=== PATIENT | male | born 1970 | race African-American/Black ===

== ENCOUNTER 2020-02-17 10:28 | Inpatient (IN) | payer OTHER ==
[~2020-02-17] VITALS: Ht 172.7 cm; Wt 79.0 kg
[2020-02-17 11:19] LABS: ABSOLUTE BASOPHILS 0.1 thou/uL (0.0-0.2); ABSOLUTE EOSINOPHILS 0.1 thou/uL (0.0-0.7); ABSOLUTE LYMPHOCYTES 1.5 thou/uL (0.8-5.3); ABSOLUTE MONOCYTES 0.9 thou/uL (0.0-1.2); ABSOLUTE NEUTROPHILS 6.9 thou/uL (1.6-8.1); BASOPHILS 0.6 %; EOSINOPHILS 0.7 %; HEMATOCRIT 31.1 % (42.0-52.0); HEMOGLOBIN 10.3 gm/dL (14.0-18.0); LYMPHOCYTES 15.8 %; MCV 78.9 fL (80.0-100.0); MONOCYTES 9.4 %; MPV 7.3 fl. (7.2-11.1); NUCLEATED RBCS 0 /100WBC; PLATELET COUNT* 378 thou/uL (150-400); POLYS 73.5 %; RBC 3.94 mil/uL (4.50-6.00); RDW-CV 14.8 % (10.5-14.5); WBC 9.4 thou/uL (4.0-11.0)
[2020-02-17 11:28] LABS: APTT 25.6 Seconds (25.0-31.3); INR 1.1; PROTIME 11.5 Seconds (9.20-11.50)
[2020-02-17 11:33] LABS: CALCIUM 8.1 mg/dL (8.5-10.1); CREATININE 1.4 mg/dL (0.6-1.3); POTASSIUM 4.1 mmol/L (3.5-5.1)
[2020-02-17 11:58] LABS: ALBUMIN 2.4 g/dL (3.4-5.0); CK-MB MASS 0.5 ng/mL (<0.5-3.6); TOTAL BILIRUBIN 0.7 mg/dL (<0.1-1.0); TOTAL PROTEIN 7.3 g/dL (6.4-8.2)
[2020-02-17 16:12] VITALS: BP 132/83
[2020-02-17 17:40] VITALS: BP 129/99
[2020-02-17 20:00] VITALS: BP 134/80
[2020-02-18] VITALS (7 sets, daily range): BP systolic 110–145; BP diastolic 64–85
[2020-02-18 09:23] LABS: CALCIUM 8.1 mg/dL (8.5-10.1); CREATININE 1.4 mg/dL (0.6-1.3); POTASSIUM 4.1 mmol/L (3.5-5.1)
--- NOTE | 2020-02-18 16:24 | 2DMMODE ---
[place] [address] 2 D/M-MODE ECHOCARDIOGRAM Name: EVON VINES Room: [address] IN [facility]#: [id number] Admission: 02/17/20 Attend Phys: Raymond Bautista Discharge: Date of : 74 Date of Service: 02/18/20 1623 Report #: [id number] THIS REPORT FOR: cc: FAM - No family physician/PCP FAM - No family physician/PCP Evangelista Nelson MD [facility] ~ APPROVED REPORT Study performed: 02/18/2020 10:40:30 EXAM: Comprehensive 2D, Doppler, and color-flow Echocardiogram Patient Location: In-Patient Room #: [facility] Status: routine BSA: 1.90 HR: 77 bpm BP: 119/69 mmHg Rhythm: NSR Other Information Study Quality: Good Indications Elevated Troponin Chest Pain 2D Dimensions IVSd: 9.81 (7-11mm) LVOT Diam: 19.67 (18-24mm) LVDd: 41.70 mm PWd: 9.29 (7-11mm) Ascending Ao: 29.60 (22-36mm) LVDs: 27.30 (25-40mm) Aortic Root: 32.18 mm Volumes Left Atrial Volume (Systole) LA ESV Index: 27.00 mL/m2 Aortic Valve AoV Peak Vin.: 1.46 m/s AO Peak Gr.: 8.53 mmHg LVOT Max P.66 mmHg AO Mean Gr.: 4.91 mmHg LVOT Mean P.56 mmHg LVOT Max V: 1.38 m/s AO V2 VTI: 27.32 cm LVOT Mean V: 0.86 m/s RAMONA (VTI): 2.84 cm2 LVOT V1 VTI: 25.54 [place] [address] 2 D/M-MODE ECHOCARDIOGRAM Name: EVON VINES Room: [address] IN [facility]#: [id number] Admission: 02/17/20 Attend Phys: Raymond Bautista Discharge: Date of : 74 Date of Service: 02/18/20 1623 Report #: [id number] Mitral Valve E/A Ratio: 1.74 MV Decel. Time: 180.26 ms MV E Max Vin.: 0.79 m/s MV PHT: 52.28 ms MVA (PHT): 4.21 cm2 TDI E/Lateral E': 6.08 E/Medial E': 7.18 Medial E' Vin.: 0.11 m/s Lateral E' Vin.: 0.13 m/s Pulmonary Valve PV Peak Vin.: 0.85 m/s PV Peak Gr.: 2.87 mmHg Tricuspid Valve RAP Estimate: 5.00 mmHg TR Peak Gr.: 26.60 mmHg RVSP: 31.00 mmHg PA Pressure: 31.00 mmHg Left Ventricle The left ventricle is normal size. There is normal LV segmental wall motion. There is normal left ventricular wall thickness. Left ventricular systolic function is normal. The left ventricular ejection fraction is within the normal range. LVEF is 55-60%. The left ventricular diastolic function is normal. Right Ventricle The right ventricle is normal size. The right ventricular systolic function is normal. Atria The left atrium size is normal. The right atrium size is normal. Aortic Valve The aortic valve is normal in structure. No aortic regurgitation is present. There is no aortic valvular stenosis. Mitral Valve The mitral valve is normal in structure; there is a flagellate mass appended to the to the anterior mitral lealet which is freely mobile. Mild mitral regurgitation. No evidence of mitral valve [place] [address] 2 D/M-MODE ECHOCARDIOGRAM Name: EVON VINES Room: [address] IN [facility]#: [id number] Admission: 02/17/20 Attend Phys: Raymond Bautista Discharge: Date of : 74 Date of Service: 02/18/20 1623 Report #: [id number] Tricuspid Valve The tricuspid valve is normal in structure. Trace tricuspid regurgitation. No pulmonary hypertension. Pulmonic Valve The pulmonary valve is normal in structure. There is no pulmonic valvular regurgitation. Great Vessels The aortic root is normal in size. IVC is normal in size and collapses >50% with inspiration. Pericardium There is no pericardial effusion. <Conclusion> The left ventricle is normal size. There is normal left ventricular wall thickness. Left ventricular systolic function is normal. The left ventricular ejection fraction is within the normal range. LVEF is 55-60%. The left ventricular diastolic function is normal. The right ventricle is normal size. The left atrium size is normal. The aortic valve is normal in structure. The mitral valve is normal in structure; there is a flagellate mass appended to the to the anterior mitral lealet which is freely mobile. Mild mitral regurgitation. No evidence of mitral valve stenosis. The tricuspid valve is normal in structure. IVC is normal in size and collapses >50% with inspiration. There is no pericardial effusion. There is normal LV segmental wall motion. <ELECTRONICALLY SIGNED> By: Evangelista Nelson MD, [facility] 02/18/20 1623 162 162 Evangelista Nelson MD, FACC /INF
--- NOTE | 2020-02-18 17:39 | EKG ---
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1970 Requested By: Sushil aMyo Order Number: [id number] MD: Russell Zacarias Measurements Intervals [place] Rate: 103 P: 48 [place]: 162 QRS: 48 QRSD: 88 T: 45 QT: 327 QTc: 428 Interpretive Statements Sinus tachycardia Left atrial enlargement Left ventricular hypertrophy ST elev, probable normal early repol pattern No previous ECG available for comparison Electronically Signed On 02-18-2020 17:39:24 CDT by Russell Zacarias [email or web address] <ELECTRONICALLY SIGNED> By: Russell Zacarias MD, FACC 02/18/20 1739 1034 1034 Russell Zacarias MD, FAC /EPI
--- NOTE | 2020-02-18 17:42 | EKG ---
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1970 Requested By: Raymond Bautista Order Number: [id number] Nova MD: Russell Zacarias Measurements Intervals [place] Rate: 106 P: 56 SD: 147 QRS: 57 QRSD: 79 T: 37 QT: 309 QTc: 411 Interpretive Statements Sinus tachycardia Probable left atrial enlargement Left ventricular hypertrophy with repolarization abnormalities compared to ECG 02/17/2020 18:25:52 No significant changes Electronically Signed On 02-18-2020 17:42:23 CDT by Russell Zacarias [email or web address] <ELECTRONICALLY SIGNED> By: Russell Zacarias MD, FACC 02/18/20 1742 1826 1826 Russell Zacarias MD, [facility] /EPI
--- NOTE | 2020-02-18 17:42 | EKG ---
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1970 Requested By: Deborah Ryan Order Number: [id number] Nova MD: Russell Zacarias Measurements Intervals [place] Rate: 101 P: 35 NM: 157 QRS: 53 QRSD: 75 T: 36 QT: 380 QTc: 493 Interpretive Statements Sinus tachycardia Probable left atrial enlargement Left ventricular hypertrophy with repolarization abnormality Compared to ECG 02/17/2020 10:34:12 No significant changes noted Electronically Signed On 02-18-2020 17:42:08 CDT by Russell Zacarias [email or web address] <ELECTRONICALLY SIGNED> By: Russell Zacarias MD, FACC 02/18/20 1742 1825 1825 Russell Zacarias MD, [facility] /EPI
--- NOTE | 2020-02-18 17:45 | EKG ---
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1970 Requested By: Deborah Ryan Order Number: [id number] Nova MD: Russell Zacarias Measurements Intervals [place] Rate: 84 P: 35 [place]: 168 QRS: 60 QRSD: 79 T: 61 QT: 365 QTc: 432 Interpretive Statements Sinus rhythm Probable left atrial enlargement ST elevation, consider inferior injury Compared to ECG 02/17/2020 10:34:12 Myocardial infarct finding now present Sinus tachycardia no longer present Left ventricular hypertrophy no longer present ST (T wave) deviation still present Electronically Signed On 02-18-2020 17:44:57 CDT by Russell Zacarias [email or web address] <ELECTRONICALLY SIGNED> By: Russell Zacarias MD, FACC 02/18/20 1744 Russell Zacarias MD, FAC /EPI
[2020-02-18 21:56] LABS: URINE BILIRUBIN NEGATIVE (Negative); URINE BLOOD 2+ (Negative); URINE CLARITY CLEAR; URINE COLOR YELLOW; URINE GLUCOSE-RANDOM NEGATIVE (Negative); URINE KETONES NEGATIVE (Negative); URINE LEUKOCYTES-REFLEX NEGATIVE (Negative); URINE NITRITE-REFLEX NEGATIVE (Negative); URINE PROTEIN 1+ (Negative); URINE SPECIFIC GRAVITY 1.015 (1.005-1.030)
[2020-02-18 22:08] LABS: BACTERIA-REFLEX None Seen /HPF (None Seen); CASTS None Seen /LPF (None Seen); CRYSTALS None Seen /LPF (None Seen); SQUAMOUS 4-10 Moderate /LPF (0-3); URINE RBC 0-2 Rare /HPF (0-2); URINE WBC-REFLEX None Seen /HPF (0-5)
[2020-02-19] VITALS (13 sets, daily range): BP systolic 12–150; BP diastolic 75–94
[2020-02-19 05:03] LABS: HEMATOCRIT 27.9 % (42.0-52.0); HEMOGLOBIN 9.3 gm/dL (14.0-18.0); MCH 26.1 pg (26.0-34.0); MCHC 33.4 g/dL (28.0-37.0); MCV 78.2 fL (80.0-100.0); MPV 7.2 fl. (7.2-11.1); RBC 3.57 mil/uL (4.50-6.00); WBC 7.8 thou/uL (4.0-11.0)
[2020-02-19 05:08] LABS: ALBUMIN 1.9 g/dL (3.4-5.0); CALCIUM 7.6 mg/dL (8.5-10.1); CREATININE 1.3 mg/dL (0.6-1.3); POTASSIUM 4.1 mmol/L (3.5-5.1); TOTAL BILIRUBIN 0.6 mg/dL (<0.1-1.0); TOTAL PROTEIN 6.3 g/dL (6.4-8.2)
[2020-02-19 13:42] LABS: CALCIUM 8.3 mg/dL (8.5-10.1); CREATININE 1.2 mg/dL (0.6-1.3)
--- NOTE | 2020-02-19 14:07 | TEE ---
[place] [address] TRANSESOPHAGEAL ECHOCARDIOGRAM Name: EVON VINES Room: [address] IN [facility]#: [id number] Admission: 02/17/20 Attend Phys: Raymond Bautista Discharge: Date of : 74 Date of Service: 02/19/20 1407 Report #: [id number] THIS REPORT FOR: cc: FAM - No family physician/PCP FAM - No family physician/PCP Russell Zacarias MD [facility] ~ APPROVED REPORT Study performed: 02/19/2020 10:04:47 EXAM: Transesophageal Echocardiogram Patient Location: In-Patient Room #: [facility] Status: routine BSA: 1.90 HR: 96 bpm BP: 135/753 mmHg Rhythm: NSR Other Information Study Quality: Good Indications MV vegetation Echo Enhancing Agent Indication: Rule out Shunt Agent(s) / Amount(s) Used: Agitated Saline 10 cc Procedure After obtaining informed consent, patient underwent transesophageal echo in the [employer]. Type of Sedation : Conscious Sedation Sedation was administered by Jessica Doyle RN. Sedation start time: 1128 Case end Time: 1140 Sedation was achieved intravenously with: Versed (8) Fentanyl (200) Transesophageal probe was inserted and advanced into esophagus without difficulty by Russell Zacarias MD, FACC. Echo enhancement indication: R/O Septal defect. Echo enhancement agent administered: Agitated Saline The ANITHA was performed without complications. Throughout the procedure, the blood pressure, pulse oximetry, cardiac rhythm, and [place] [address] TRANSESOPHAGEAL ECHOCARDIOGRAM Name: EVON VINES Room: [address]#: [id number] Admission: 02/17/20 Attend Phys: Raymond Bautista Discharge: Date of : 74 Date of Service: 02/19/20 1407 Report #: [id number] The patient tolerated the procedure without adverse effects. Recovery from conscious sedation was uneventful and vital signs were stable. Left Ventricle The left ventricle is normal size. There is normal LV segmental wall motion. There is normal left ventricular wall thickness. Left ventricular systolic function is normal. LVEF is 60-65%. Right Ventricle The right ventricle is normal size. The right ventricular systolic function is normal. Atria No thrombus is visualized in the left atrium or appendage. Injection of contrast documented an interatrial shunt. The right atrium size is normal. Aortic Valve The aortic valve is normal in structure. No aortic regurgitation is present. There is no aortic valvular stenosis. Mitral Valve The mitral valve is normal in structure. There is no mitral valve regurgitation noted. Small mitral valve vegetation is present on the ventricular side of the anterior mitral valve leaflet. No evidence of mitral valve stenosis. Tricuspid Valve The tricuspid valve is normal in structure. Trace tricuspid regurgitation. Pulmonic Valve The pulmonary valve is normal in structure. There is no pulmonic valvular regurgitation. Great Vessels The aortic root is normal in size. Pericardium There is no pericardial effusion. <Conclusion> The left ventricle is normal size. There is normal left ventricular wall thickness. Left ventricular systolic [place] [address] TRANSESOPHAGEAL ECHOCARDIOGRAM Name: EVON VINES Room: [address] IN [facility].#: [id number] Admission: 02/17/20 Attend Phys: Raymond Bautista Discharge: Date of : 74 Date of Service: 02/19/201406 Report #: [id number] LVEF is 60-65%. No thrombus is visualized in the left atrium or appendage. Injection of contrast documented an interatrial shunt. Small mitral valve vegetation is present on the ventricular side of the anterior mitral valve leaflet. There is no mitral valve regurgitation noted. <ELECTRONICALLY SIGNED> By: Russell Zacarias MD, FAC 02/19/201406 06 06 Russell Zacarias MD, FACC /INF
[2020-02-20] VITALS (16 sets, daily range): BP systolic 110–153; BP diastolic 60–96
[2020-02-20 04:48] LABS: ABSOLUTE BASOPHILS 0.1 thou/uL (0.0-0.2); ABSOLUTE EOSINOPHILS 0.5 thou/uL (0.0-0.7); ABSOLUTE LYMPHOCYTES 2.1 thou/uL (0.8-5.3); ABSOLUTE MONOCYTES 0.6 thou/uL (0.0-1.2); ABSOLUTE NEUTROPHILS 4.4 thou/uL (1.6-8.1); BASOPHILS 1.5 %; EOSINOPHILS 6.3 %; HEMATOCRIT 28.1 % (42.0-52.0); HEMOGLOBIN 9.3 gm/dL (14.0-18.0); LYMPHOCYTES 26.9 %; MCH 26.1 pg (26.0-34.0); MCHC 33.2 g/dL (28.0-37.0); MCV 78.6 fL (80.0-100.0); MONOCYTES 8.2 %; NUCLEATED RBCS 0 /100WBC; PLATELET COUNT* 461 thou/uL (150-400); POLYS 57.1 %; RBC 3.57 mil/uL (4.50-6.00); RDW-CV 15.3 % (10.5-14.5); WBC 7.7 thou/uL (4.0-11.0)
[2020-02-20 05:59] LABS: ALBUMIN 1.9 g/dL (3.4-5.0); CALCIUM 7.7 mg/dL (8.5-10.1); CREATININE 1.2 mg/dL (0.6-1.3); MAGNESIUM 2.3 mg/dL (1.8-2.4); TOTAL BILIRUBIN 0.4 mg/dL (<0.1-1.0); TOTAL PROTEIN 5.9 g/dL (6.4-8.2)
[2020-02-20 10:22] LABS: AMP/METHAMP Negative (Negative); BARBITURATES Negative (Negative); BENZODIAZEPINES POSITIVE (Negative); COCAINE POSITIVE (Negative); METHADONE Negative (Negative); OPIATES Negative (Negative); PCP Negative (Negative); THC Negative (Negative)
[2020-02-20 16:06] LABS: HIV-1/HIV-2 ANTIBODY Non Reactive (Non Reactive)
[2020-02-21 01:24] VITALS: BP 138/92
[2020-02-21 04:32] VITALS: BP 146/87
[2020-02-21 05:03] LABS: HEMATOCRIT 28.7 % (42.0-52.0); HEMOGLOBIN 9.7 gm/dL (14.0-18.0); MCH 26.4 pg (26.0-34.0); MCHC 33.9 g/dL (28.0-37.0); MCV 78.1 fL (80.0-100.0); NUCLEATED RBCS 0 /100WBC; PLATELET COUNT* 527 thou/uL (150-400); RBC 3.67 mil/uL (4.50-6.00); RDW-CV 14.7 % (10.5-14.5); WBC 9.8 thou/uL (4.0-11.0)
[2020-02-21 05:37] LABS: ALBUMIN 2.1 g/dL (3.4-5.0); CALCIUM 8.5 mg/dL (8.5-10.1); CREATININE 1.2 mg/dL (0.6-1.3); MAGNESIUM 2.3 mg/dL (1.8-2.4); POTASSIUM 4.4 mmol/L (3.5-5.1); TOTAL BILIRUBIN 0.3 mg/dL (<0.1-1.0); TOTAL PROTEIN 7.3 g/dL (6.4-8.2)
[2020-02-21 07:27] LABS: ABSOLUTE LYMPHOCYTES 0.6 thou/uL (0.8-5.3); ABSOLUTE MONOCYTES 0.1 thou/uL (0.0-1.2); ABSOLUTE NEUTROPHILS 9.1 thou/uL (1.6-8.1); PLATELET ESTIMATE ADEQUATE
[2020-02-21 07:30] VITALS: BP 158/96
[2020-02-21 14:10] VITALS: BP 163/99
[2020-02-21 19:06] VITALS: BP 139/84
[2020-02-21 19:07] LABS: ANA INTERPRETATION Positive (())
[2020-02-21 20:20] VITALS: BP 164/90
[2020-02-21 23:06] LABS: MYCOPLASMA PNEUMONIA IgG 175 U/mL (0-99); MYCOPLASMA PNEUMONIA IgM <770 U/mL (0-769)
[2020-02-22] VITALS: BP 142/80
[2020-02-22 04:43] VITALS: BP 154/96
[2020-02-22 04:53] LABS: ABSOLUTE BASOPHILS 0.1 thou/uL (0.0-0.2); ABSOLUTE LYMPHOCYTES 2.3 thou/uL (0.8-5.3); ABSOLUTE MONOCYTES 1.1 thou/uL (0.0-1.2); ABSOLUTE NEUTROPHILS 13.7 thou/uL (1.6-8.1); BASOPHILS 0.4 %; HEMOGLOBIN 9.2 gm/dL (14.0-18.0); LYMPHOCYTES 13.6 %; MCH 25.7 pg (26.0-34.0); MCHC 32.8 g/dL (28.0-37.0); MCV 78.4 fL (80.0-100.0); MONOCYTES 6.2 %; MPV 7.1 fl. (7.2-11.1); NUCLEATED RBCS 0 /100WBC; PLATELET COUNT* 542 thou/uL (150-400); POLYS 79.8 %; RBC 3.57 mil/uL (4.50-6.00); WBC 17.2 thou/uL (4.0-11.0)
[2020-02-22 05:20] LABS: CALCIUM 8.5 mg/dL (8.5-10.1); CREATININE 1.4 mg/dL (0.6-1.3); MAGNESIUM 2.2 mg/dL (1.8-2.4); POTASSIUM 4.1 mmol/L (3.5-5.1); TOTAL BILIRUBIN 0.3 mg/dL (<0.1-1.0); TOTAL PROTEIN 6.6 g/dL (6.4-8.2)
[2020-02-22 07:30] VITALS: BP 148/83
[2020-02-22 12:04] VITALS: BP 159/93
[2020-02-22 18:58] VITALS: BP 158/89
[2020-02-22 20:20] VITALS: BP 146/93
[2020-02-23] VITALS: BP 137/74
[2020-02-23 04:00] VITALS: BP 123/75
[2020-02-23 07:46] LABS: ABSOLUTE BASOPHILS 0.1 thou/uL (0.0-0.2); ABSOLUTE EOSINOPHILS 0.1 thou/uL (0.0-0.7); ABSOLUTE LYMPHOCYTES 2.7 thou/uL (0.8-5.3); ABSOLUTE NEUTROPHILS 8.5 thou/uL (1.6-8.1); BASOPHILS 1.1 %; EOSINOPHILS 0.5 %; HEMATOCRIT 29.7 % (42.0-52.0); HEMOGLOBIN 9.5 gm/dL (14.0-18.0); LYMPHOCYTES 21.6 %; MCH 25.4 pg (26.0-34.0); MCHC 32.2 g/dL (28.0-37.0); MCV 78.8 fL (80.0-100.0); MONOCYTES 8.2 %; MPV 7.4 fl. (7.2-11.1); NUCLEATED RBCS 0 /100WBC; POLYS 68.6 %; RBC 3.76 mil/uL (4.50-6.00); RDW-CV 15.1 % (10.5-14.5); WBC 12.3 thou/uL (4.0-11.0)
[2020-02-23 07:49] LABS: PLATELET COUNT* 643 thou/uL (150-400)
[2020-02-23 08:00] VITALS: BP 127/89
[2020-02-23 08:00] LABS: ALBUMIN 2.3 g/dL (3.4-5.0); CALCIUM 8.2 mg/dL (8.5-10.1); CREATININE 1.4 mg/dL (0.6-1.3); MAGNESIUM 2.1 mg/dL (1.8-2.4); POTASSIUM 3.7 mmol/L (3.5-5.1); TOTAL BILIRUBIN 0.4 mg/dL (<0.1-1.0); TOTAL PROTEIN 6.9 g/dL (6.4-8.2)
[2020-02-23 12:37] VITALS: BP 154/98
[2020-02-23 19:50] VITALS: BP 154/92
[2020-02-24] VITALS: BP 141/92
[2020-02-24 04:00] VITALS: BP 140/94
[2020-02-24 05:24] LABS: HEMATOCRIT 29.2 % (42.0-52.0); HEMOGLOBIN 9.8 gm/dL (14.0-18.0); MCH 26.2 pg (26.0-34.0); MCHC 33.4 g/dL (28.0-37.0); MCV 78.5 fL (80.0-100.0); MPV 7.1 fl. (7.2-11.1); RBC 3.73 mil/uL (4.50-6.00); RDW-CV 15.4 % (10.5-14.5); WBC 10.2 thou/uL (4.0-11.0)
[2020-02-24 05:39] LABS: ALBUMIN 2.2 g/dL (3.4-5.0); CALCIUM 8.2 mg/dL (8.5-10.1); CREATININE 1.3 mg/dL (0.6-1.3); POTASSIUM 3.8 mmol/L (3.5-5.1); TOTAL BILIRUBIN 0.5 mg/dL (<0.1-1.0); TOTAL PROTEIN 6.7 g/dL (6.4-8.2)
[2020-02-24 08:00] VITALS: BP 147/95
[2020-02-24 12:47] VITALS: BP 134/89
[2020-02-24 16:20] VITALS: BP 154/91
[2020-02-24 19:50] VITALS: BP 134/95
[2020-02-25] VITALS: BP 116/75
[2020-02-25 04:00] VITALS: BP 126/74
[2020-02-25 06:38] LABS: HEMOGLOBIN 9.4 gm/dL (14.0-18.0); MCH 25.3 pg (26.0-34.0); MCHC 32.5 g/dL (28.0-37.0); MCV 77.9 fL (80.0-100.0); MPV 6.6 fl. (7.2-11.1); RBC 3.72 mil/uL (4.50-6.00); RDW-CV 15.7 % (10.5-14.5); WBC 12.3 thou/uL (4.0-11.0)
[2020-02-25 06:51] LABS: ALBUMIN 2.3 g/dL (3.4-5.0); CALCIUM 8.2 mg/dL (8.5-10.1); CREATININE 1.1 mg/dL (0.6-1.3); MAGNESIUM 1.7 mg/dL (1.8-2.4); POTASSIUM 3.8 mmol/L (3.5-5.1); TOTAL BILIRUBIN 0.6 mg/dL (<0.1-1.0); TOTAL PROTEIN 6.8 g/dL (6.4-8.2)
[2020-02-25 07:30] VITALS: BP 126/64
[2020-02-25] MEDS ORDERED: ASPIR 8181 MG PO (11:24)
[2020-02-25] MEDS ORDERED: VANCO1GM IV (11:24)
[2020-02-25] MEDS ORDERED: ELIQUIS5 MG PO (11:24)
[2020-02-25] MEDS ORDERED: AMOX TR-K CLV1 EAC4 PO (11:24)
[2020-02-25] MEDS ORDERED: TOPROL XL100 MG PO (11:24)
[2020-02-25] MEDS ORDERED: FLORANEX TABLE1 EACH PO (11:24)
[2020-02-25] MEDS ORDERED: TRAMADOL 50 MG50 MG PO (11:24)
[2020-02-25 12:44] VITALS: BP 102/63
[2020-02-25 19:55] VITALS: BP 116/99
[2020-02-26 00:30] VITALS: BP 122/72
[2020-02-26 04:30] VITALS: BP 114/68
[2020-02-26 08:30] VITALS: BP 125/69
[2020-02-26 13:34] VITALS: BP 116/62
[2020-02-26 16:00] VITALS: BP 127/75
[2020-02-26 17:30] VITALS: BP 97/64
[2020-02-27] VITALS: BP 138/97; BP 98/51
[2020-02-27 04:00] VITALS: BP 145/92
[2020-02-27 04:55] LABS: HEMATOCRIT 27.2 % (42.0-52.0); HEMOGLOBIN 8.9 gm/dL (14.0-18.0); MCH 25.6 pg (26.0-34.0); MCHC 32.8 g/dL (28.0-37.0); MCV 77.9 fL (80.0-100.0); MPV 7.1 fl. (7.2-11.1); RBC 3.5 mil/uL (4.50-6.00); RDW-CV 15.5 % (10.5-14.5); WBC 12.3 thou/uL (4.0-11.0)
[2020-02-27 05:11] LABS: CALCIUM 8.3 mg/dL (8.5-10.1); CREATININE 1.1 mg/dL (0.6-1.3); MAGNESIUM 2.1 mg/dL (1.8-2.4); POTASSIUM 4.3 mmol/L (3.5-5.1)
[2020-02-27 08:00] VITALS: BP 149/94
[2020-02-27 12:30] VITALS: BP 165/104
[2020-02-27 12:41] VITALS: BP 165/104
--- NOTE | 2020-02-27 16:06 | PATH ---
[address] [address] PATHOLOGY RPT PROCEDURE Name: EVON VINES Room: [address] IN .R.#: [id number] Admission: 02/17/20 Date of : 74 Discharge: Report #: [id number] Path Case #: [id number] [facility] Accession Number: [id number] . 01 Material submitted: . lung - CORE BIOPSY OF LEFT LUNG MASS. Modifiers: left . 01 Clinical history: . CHEST PAIN, ELEVATED TROPONIN . 02 Diagnosis: "Lung, left mass", needle biopsy: - Rare atypical cells, arising in a background of acute and chronic inflammation, blood, fibrin, and necrosis. - Please see comment. (MLK:pit; 02/27/2020) QTP 02/27/2020 1555 Local . 02 Comment: The biopsy from the left lung mass consists of a robust acute and chronic inflammatory process with blood, fibrin, and necrosis. There are focal atypical cells identified, the origin of which is unclear. The differential diagnosis includes an inflammatory process (necrotizing granuloma versus abscess) versus neoplasm. Re-biopsy is suggested for further clarification of the etiology of the lung mass. . The case is seen in co-review with Dr. Maria D Vickers. (MLK:pit; 02/27/2020) . 02 Electronically signed: . Lily Chase MD, Pathologist NPI- [id number] . 01 Gross description: . The specimen is received in formalin, labeled "Evon Vines, left lung mass BX" and consists of multiple fragments of kenyon tissue measuring 0.7 x 0.4 x 0.1 cm in aggregate which are entirely submitted in A1. (SDY; 02/21/2020) SYU/SYU 02/21/2020 1143 Local . 02 Microscopic: . Immunohistochemical stain results (block A1) CK56 - Highlights rare squamous metaplastic cells P63 - Highlights the nuclei of scattered cells. TTF-1 - Highlights pneumocytes and scattered cells Napsin A - Highlights rare cells AE1/AE3 - Highlights pneumocytes CK Ronald - [place] [address] PATHOLOGY RPT PROCEDURE Name: EVON VINES Room: [address] M.R.#: [id number] Admission: 02/17/20 Date of : 74 Discharge: Report #: [id number] Path Case #: [id number] S100 - Negative Synaptophysin - Negative CD56 - Negative LCA - Highlights lymphocytes Desmin - Highlights vessels CD68 - Highlights scattered histiocytes (MLK:pit; 02/27/2020) . 02 Pathologist provided ICD-10: J98.4, J18.9 . 02 CPT . 451522, Z91197, Q80420 Specimen Comment: A courtesy copy of this report has been sent to [phone] Specimen Comment: Report sent to / DR SELF Performed at: 01 [facility] [address] [place] [address] [id number] MD Luis E Carey MD Phone: [phone] Performed at: [address] [id number] MD Harsha Perez MD Phone: [phone]
--- NOTE | 2020-02-28 13:11 | CON ---
[address] [address] CONSULTATION Name: EVON VINES Room: [address] IN M.R.#: [id number] Admission: 02/17/20 Attend Phys: Higinio Holloway Discharge: 02/27/20 Date of : 74 Report #: [id number] THIS REPORT FOR: //name// cc: SAI Gutierrez family physician/PCP SAI - No family physician/PCP ~ THIS REPORT FOR: //name// CC: SAI physician/PCP Raymond Bautista DATE OF SERVICE: 02/18/2020 CONSULT REQUESTED BY: Dr. Bautista. INDICATION FOR CONSULTATION: Pulmonary masses. HISTORY OF PRESENT ILLNESS: The patient is a 49-year-old gentleman. He has no past medical history. He also does not have any known history of smoking and he denies injecting himself ever with any drugs. He has used marijuana in the past. The patient is now admitted with vague and rather unusual symptoms. He has been having intermittent abdominal pain. He has also had a cough, small amounts of white as well as yellow sputum. He has had some muscle spasms and for the last few days, he has been short of breath. The patient says initially symptoms started a couple of months ago and he has been on unwell for at least a couple of months. There are no upper respiratory complaints. There is no fever. He has not reported any change in bowel habits. He does not report any urinary complaints. There is no swelling of lower extremities. There is no calf pain. The patient's review of systems is negative for 12 points except as mentioned above. Yesterday, he was having chest pain and therefore had a workup performed including a CTA chest, which does show mass-like infiltrates/possible septic emboli as well as pulmonary infiltrates. He has also had an echocardiogram performed, which is reported to show a mobile mass suspicious of a vegetation. He has had a CT of the abdomen just performed; however, I do not have the report. PAST MEDICAL HISTORY: There is no past medical history including he denies any history of major dental issues. SOCIAL HISTORY: He reports having used marijuana in the past. He says that he has never injected himself with any drugs. There is no known history of smoking or ethanol abuse. He does report having used alcohol. However, at this point, there is no indication that his use of [place] [address] CONSULTATION Name: EVON VINES Room: [address]#: [id number] Admission: 02/17/20 Attend Phys: Higinio Holloway Discharge: 02/27/20 Date of : 74 Report #: [id number] CURRENT MEDICATIONS: The list is in [employer], reviewed. HOME MEDICATIONS: He is not known to be in any home medications. FAMILY HISTORY: Hypertension. PHYSICAL EXAMINATION: GENERAL: He is alert, awake and oriented, does not appear to be in any distress. VITAL SIGNS: Pulse of 78 and a blood pressure of 126/75. He is not on supplemental oxygen, he is saturating 100%. He did have a high-grade fever of 38.3 yesterday. His temperature is 37.0 now. HEENT: Head is normocephalic and atraumatic. Pupils are equal and reactive. There is no throat erythema. There is no thrush in his throat. NECK: Does not show raised JVP, asymmetry, mass or lymph nodes. CHEST: Symmetrical expansion on inspection and palpation. On auscultation, chest is essentially clear. HEART: Regular. There is no murmur. ABDOMEN: Soft and nontender. EXTREMITIES: Lower extremities showed no edema and no calf tenderness. SKIN: Dry and intact. NEUROLOGICAL: Moves all extremities bilaterally equally and spontaneously with no focal deficit identified. LABORATORY DATA: The patient's lab work shows a creatinine elevated to 1.4 without an elevation in BUN. Note that he does not have a previous history of kidney disease. The rest of the chemistries are in [employer], reviewed. [facility], [facility]. Anemia is noted. WBC count is normal. Coagulation studies are unremarkable. COVID-19 screen was negative. The patient's CT chest is as described above. Preliminary report on the echocardiogram also as above. Final report pending. I am still awaiting these CT of the abdomen and pelvis reports. ASSESSMENT AND PLAN: 1. Pulmonary infiltrates/sepsis/suspected infective endocarditis. The patient's history is consistent with septic emboli to the lung. An echocardiogram preliminary report is consistent with infective endocarditis. This is, however, a rather unusual presentation. I do not see a source. Most common etiology of such a presentation would be either a tooth or gingival abscess or use of street drugs by injection, neither of these do appear to be the case. Certainly, there could be an intra-abdominal etiology leading to this. The CT of the abdomen and pelvis report is pending. Meanwhile, I fully agree with continuing vancomycin as well as Zosyn. Pending further evaluation, would also cover him with Zithromax for atypical organisms. More cultures and serologies are ordered. 2. Pulmonary nodules/masses. Certainly malignancy is possible, we will review [address] [place] [address] CONSULTATION Name: EVON VINES Room: [address] IN [facility].#: [id number] Admission: 02/17/20 Attend Phys: Higinio Holloway Discharge: 02/27/20 Date of : 74 Report #: [id number] further when the CT of the abdomen and pelvis is available. It is also possible that these are entirely infectious in etiology. For now, we will favor holding off on considering a biopsy and we would like to stabilize the patient further first and treat with antibiotics. 3. Mobile cardiac mass. Agree with plans for ANITHA. 4. Renal insufficiency. The patient has received IV dye. He also is receiving vancomycin, which he does need. Therefore, I will keep him well hydrated. I ordered Ringer's lactate at 125 mL an hour. His urine output is on the lower side, I will be inclined to give him even more fluids. 5. Deep vein thrombosis prophylaxis. Lovenox. Thanks for this consultation. <ELECTRONICALLY SIGNED> By: Leoncio Panda MD 02/28/20 1311 1435 1453Akarley Panda MD /nt
--- NOTE | 2020-02-28 13:11 | PROC ---
[address] [address] PROCEDURE REPORT Name: EVON VINES Room: [address] IN M.R.#: [id number] Admission: 02/17/20 Attend Phys: Higinio Holloway Discharge: 02/27/20 Date of : 74 Report #: [id number] THIS REPORT FOR: //name// cc: SAI Gutierrez family physician/PCP SAI - Brenda family physician/PCP ~ THIS REPORT FOR: //name// CC: SAI physician/PCP Raymond Bautista DATE OF SERVICE: 02/27/2020 PROCEDURE PERFORMED: Bronchoscopy with bronchial washings. INDICATION FOR PROCEDURE: Pulmonary infiltrates with infective endocarditis and septic emboli/lung masses. POSTPROCEDURE DIAGNOSIS: Minor hemorrhage is noted in the airways, some above the vocal cord as well. Clear secretions are noted. There is no endobronchial lesion. SEDATION: The patient was sedated with 3 mg of Versed in addition to 200 mcg of fentanyl in addition to various amounts of local anesthetic solution being instilled in the patient's upper airway. PROCEDURE: Informed consent was obtained. The patient was taken off anticoagulation for this reason overnight and the patient was then transferred to the bronchoscopy suite where the patient was sedated as above in several increments and the respiratory therapist also prepped the upper airway. The patient had reported that he does not like insertion of any item in his nose and therefore, I decided to proceed with this procedure through his mouth. A lubricated bronchoscope was introduced in his mouth and was advanced to visualize the vocal cords. The vocal cords were sprayed with 2% Xylocaine, estimated around 15 mL before the cough reflex subsided. I then advanced the scope into the trachea. There were clear secretions noted. I instilled another 3 mL of 2% Xylocaine solution in the trachea, right mainstem as well as the left mainstem. The patient at this time was on nasal cannula oxygen. I noticed the patient's O2 saturation gradually drifting down to around 85%. I therefore removed the bronchoscope, placed the patient on nonrebreather mask and then reintroduced procedure. The patient's O2 saturation quickly came up to around 98-99% after he was placed on nonrebreather mask and now proceeded to examining the entire left and right bronchial tree. Even before I had passed beyond the vocal cords, the first time I had seen a small amount of blood above the vocal cords, which was cautiously suctioned out. Small amounts of hemorrhagic secretions were seen throughout the airways. There were clear secretions present as well. Upon clearing these secretions there [place] [address] PROCEDURE REPORT Name: EVON VINES Room: [address] IN .R.#: [id number] Admission: 02/17/20 Attend Phys: Higinio Holloway Discharge: 02/27/20 Date of : 74 Report #: [id number] in the entire left bronchial tree and the mucosa was unremarkable. On the right side again I cleared these hemorrhagic secretions as well as clear secretions on the right side. Again, no active hemorrhage was noted with the exception that there was some blood present posteriorly in the right lower lobe, which I decided not to disturb. The mucosa again was unremarkable and there were no endobronchial lesions. We performed bronchial washings first in the left lower lobe. I estimate instilled around 30 mL of saline, we got back a return of 15-20 mL of hemorrhagic secretions, which was connected in a trap. Bronchial washings were also performed in the right middle lobe, an estimated 25 mL of saline was instilled and we got back a return of around 20 mL of hemorrhagic secretions. The specimens collected were sent to the laboratory and will be followed up. The patient was stable as seen after the procedure and did not have any complications as a result of this procedure. While there were small amounts of hemorrhagic secretions noted as above, when correlating with clinical picture, it appears that this hemorrhage is subsiding, the patient has not had hemoptysis for the last few days. Considering that he does have a DVT I do intend to cautiously resume anticoagulation. <ELECTRONICALLY SIGNED> By: Leoncio Panda MD 02/28/20 1311 1224 1326Akarley Panda MD /nt
--- NOTE | 2020-02-29 11:07 | PATH ---
[address] [address] PATHOLOGY RPT PROCEDURE Name: EVON VINES Room: [address] IN [facility]#: [id number] Admission: 02/17/20 Date of : 74 Discharge: 02/27/20 Report #: [id number] Path Case #: [id number] Note [facility] Accession Number: [id number] TESTS RESULT FLAG UNITS REF RANGE LAB Clinician Provided Cytology Information No. of containers..01 Other (Miscellaneous) Source: RML WASH Clinician ICD10: 01 R07.9 DIAGNOSIS: RML WASH NEGATIVE FOR MALIGNANT CELLS. ABUNDANT PULMONARY MACROPHAGES (DUST CELLS) AND BRONCHIAL EPITHELIAL CELLS AND FEW SQUAMOUS CELL AND INFLAMMATORY CELLS ARE PRESENT. THIS INTERPRETATION INCLUDES EVALUATION OF A CELL BLOCK. (RAYMUNDO:ginette 02/28/2020) Signed out by: Rayray Coronado MD, Pathologist NPI- [id number] Performed by: Tolu Sharp, Finance Consultant ([facility]) Gross description: 01 15ML, COLORLESS, 1TP, 1CB /LCS 02/28/2020 1548 Local FLAG LEGEND: L-Low Normal,H-High Normal,LL-Alert Low,HH-Alert High <-Panic Low,>-Panic High,A-Abnormal,AA-Critical Abnormal Performed at: 01 [facility] [address] [place] [address] [address] [place] [address] Luis E Carey MD, [address] [place] [address] [place] [address] Tao Coronado MD, Specimen Comment: A courtesy copy of this report has been sent to [phone] Specimen Comment: Report sent to Performed at: 01 [facility] [address], [place], [place] [id number] MD Luis E Carey MD Phone: [phone]
--- NOTE | 2020-02-29 17:06 | PATH ---
[address] [address] PATHOLOGY RPT PROCEDURE Name: EVON VINES Room: [address] IN [facility]#: [id number] Admission: 02/17/20 Date of : 74 Discharge: 02/27/20 Report #: [id number] Path Case #: [id number] Note [facility] Accession Number: [id number] TESTS RESULT FLAG UNITS REF RANGE LAB Clinician Provided Cytology Information No. of containers..01 Other (Miscellaneous) Source: LEFT LUNG WASH DIAGNOSIS: 02 LEFT LOWER LOBE LUNG WASHING: NEGATIVE FOR MALIGNANT CELLS. ABUNDANT PULMONARY MACROPHAGES (DUST CELLS), INCLUDING SCATTERED HEMOSIDERIN-LADEN MACROPHAGES, AND BRONCHIAL EPITHELIAL CELLS AND FEW SQUAMOUS CELLS AND INFLAMMATORY CELLS ARE PRESENT. THIS INTERPRETATION INCLUDES EVALUATION OF A CELL BLOCK. Diagnosis provided b 02 Tao Coronado MD, Pathologist NPI- [id number] Signed out by: 03 Tao Coronado MD, Pathologist NPI- [id number] Performed by: 01 Beatris Sharp, Package Wrapper ([facility]) Gross description: 01 15ML, PINK, 1TP, 1CB /LCS 02/28/2020 1606 Local FLAG LEGEND: L-Low Normal,H-High Normal,LL-Alert Low,HH-Alert High <-Panic Low,>-Panic High,A-Abnormal,AA-Critical Abnormal Performed at: 01 [facility] [address] [place] [address] Luis E Carey MD, 02 [facility] [address] [place] [address] Tao Coronado MD, 03 [facility] [address] [place] [address] Tao Coronado MD, Specimen Comment: A courtesy copy of this report has been sent to [phone] Specimen Comment: Report sent to DR SELF Specimen Comment: A duplicate report has been generated due to demographic updates. Performed at: 01 [facility] [address] [place] [address] PATHOLOGY RPT PROCEDURE Name: EVON VINES Room: [address] IN [facility]#: [id number] Admission: 02/17/20 Date of : 74 Discharge: 02/27/20 Report #: [id number] Path Case #: [id number] [address], [place], [place] [id number] MD Luis E Carey MD Phone: [phone]
== END 2020-02-27 17:10 | disposition left against medical advice (07) | DRG 871 ==
LOC: M.ERS 10:28 → M.TBA-ER 12:31 → M.2W 16:20
PROVIDERS: Family Medicine; Internal Medicine; Internal Medicine Critical Care Medicine; Registered Nurse; ADMIT Internal Medicine; ATTEND Internal Medicine
PROC: B24BZZ4 Ultrasonography of Heart with Aorta, Transesophageal (ICD-10-PCS; principal; 2020-02-19)
PROC: 0BBJ3ZX Excision of Left Lower Lung Lobe, Percutaneous Approach, Diagnostic (ICD-10-PCS; 2020-02-20)
PROC: 02HV33Z Insertion of Infusion Device into Superior Vena Cava, Percutaneous Approach (ICD-10-PCS; 2020-02-21)
PROC: B518YZA Fluoroscopy of Superior Vena Cava using Other Contrast, Guidance (ICD-10-PCS; 2020-02-21)
PROC: B548ZZA Ultrasonography of Superior Vena Cava, Guidance (ICD-10-PCS; 2020-02-21)
PROC: 0BC58ZZ Extirpation of Matter from Right Middle Lobe Bronchus, Via Natural or Artificial Opening Endoscopic (ICD-10-PCS; 2020-02-27)
DX: A41.9 Sepsis, unspecified organism (principal); J96.01 Acute respiratory failure with hypoxia; I21.A1 Myocardial infarction type 2; I33.0 Acute and subacute infective endocarditis; E43 Unspecified severe protein-calorie malnutrition; J15.6 Pneumonia due to other Gram-negative bacteria; I82.411 Acute embolism and thrombosis of right femoral vein; I76 Septic arterial embolism; R91.8 Other nonspecific abnormal finding of lung field; R91.1 Solitary pulmonary nodule; D64.9 Anemia, unspecified; Z53.29 Procedure and treatment not carried out because of patient's decision for other reasons; Z20.828 Contact with and (suspected) exposure to other viral communicable diseases; Q21.1 Atrial septal defect; Z82.49 Family history of ischemic heart disease and other diseases of the circulatory system; Z79.82 Long term (current) use of aspirin; Z79.899 Other long term (current) drug therapy

== ENCOUNTER → 2020-03-05 | Outpatient (CLI) | payer OTHER ==
[~2020-03-05] MED LIST: AMOX TR-K CLV1 EAC4 PO; AMOXICILLIN 50500 M1 PO; ASPIR 8181 MG PO; AUGMENTIN 875-1 EACH PO; ELIQUIS5 MG PO; FLORANEX TABLE1 EACH PO; LINEZOLID600 MG PO; LOPRESSOR100 M1 PO; MIRALAX17 GM PO; NORCO 5-325 TA1 EAC2 PO; PREDNISONE 10 M10 MG PO; TOPROL XL100 MG PO; TRAMADOL 50 MG50 MG PO; VANCO1GM IV
[2020-03-05 12:42] LABS: HEMATOCRIT 29.5 % (42.0-52.0); HEMOGLOBIN 9.5 gm/dL (14.0-18.0); MCH 24.9 pg (26.0-34.0); MCHC 32.1 g/dL (28.0-37.0); MCV 77.5 fL (80.0-100.0); MPV 6.4 fl. (7.2-11.1); RBC 3.8 mil/uL (4.50-6.00); RDW-CV 16.6 % (10.5-14.5); WBC 9.9 thou/uL (4.0-11.0)
[2020-04-03 10:51] LABS: HEMATOCRIT 34.7 % (42.0-52.0); HEMOGLOBIN 10.8 gm/dL (14.0-18.0); MCH 25.7 pg (26.0-34.0); MCV 83.1 fL (80.0-100.0); MPV 6.9 fl. (7.2-11.1); NUCLEATED RBCS 0 /100WBC; PLATELET COUNT* 561 thou/uL (150-400); RBC 4.18 mil/uL (4.50-6.00); RDW-CV 20.6 % (10.5-14.5); WBC 13.1 thou/uL (4.0-11.0)
[2020-04-03 11:35] LABS: ABSOLUTE MONOCYTES 0.1 thou/uL (0.0-1.2); ABSOLUTE NEUTROPHILS 11.9 thou/uL (1.6-8.1); PLATELET ESTIMATE ADEQUATE
== END ==
LOC: M.LAB 12:19
PROVIDERS: ATTEND Internal Medicine Critical Care Medicine
DX: Z00.00 Encounter for general adult medical examination without abnormal findings (principal)

== ENCOUNTER 2020-03-24 19:45 | Inpatient (IN) | payer OTHER ==
[~2020-03-24] VITALS: Ht 172.7 cm; Wt 77.1 kg
--- NOTE | ~2020-03-24 | CON ---
[address] [address] CONSULTATION Name: EVON VINES Room: [address] IN M.R.#: [id number] Admission: 03/24/20 Attend Phys: Allyn Yuan MD Discharge: Date of : 74 Report #: [id number] THIS REPORT FOR: //name// cc: SAI Gutierrez family physician/PCP SAI Gutierrez family physician/PCP ~ THIS REPORT FOR: //name// DATE OF SERVICE: 03/25/2020 CONSULT REQUESTED BY: Dr. Bautista. INDICATION FOR CONSULTATION: Lung masses. HISTORY OF PRESENT ILLNESS: This is a 49-year-old gentleman. We had recently seen him in this hospital during a previous admission in February. The patient at that time had presented with an intermittent abdominal pain in addition to cough with small amounts of white as well as yellow sputum. He had reported that he does not have any history of smoking and has never injected himself with any medications. The patient was positive for cocaine, although he had not reported the same. He was also having shortness of breath and cough. The patient did have hemoptysis during the previous hospitalization as well. The patient did have an echo performed, which was reported to show a large mobile mass consistent with a vegetation. He subsequently had a ANITHA performed, which in fact did not show the same and there was question as to whether the same is embolized. The patient, however, did not have any symptoms consistent with embolization. 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 He also was ordered Augmentin upon discharge. I did agree to follow up his CBCs as an outpatient. The patient now called my office. He reported that over the last week or so he was having hemoptysis. We also performed a CBC, which did show a significant drop in hemoglobin to only 6.4 without a significant drop in platelet count. The patient also had been on Eliquis head as he did have a DVT during the last hospitalization. At this point, I had recommended to him that he goes to the Emergency Room and therefore, he was admitted through the Emergency Room yesterday. At this time, he continues to have hemoptysis. He does still have a cough as well. He does have some shortness of breath; however, this is not a major complaint for him. He does report some chest pain [place] [address] CONSULTATION Name: EVON VINES Room: [address] IN M.R.#: [id number] Admission: 03/24/20 Attend Phys: Allyn Yuan MD Discharge: Date of : 74 Report #: [id number] coughing. He does not have upper respiratory complaints. He does not have swelling of lower extremities, a profound anemia; however, is noted. REVIEW OF SYSTEMS: The patient answers to the negative for 12 questions for review of systems except as mentioned above. PAST MEDICAL HISTORY: Infective endocarditis with a large vegetation, which was subsequently not seen on a PE as above. Recent deep venous thrombosis, lung masses. I had performed a bronchoscopy during the last hospitalization, which is as documented in [facility] SOCIAL HISTORY: The patient did report having used marijuana. He reported not having injected himself with any other drugs. He described no smoking or ethanol abuse. The patient is noted to be positive on cocaine further during the last hospitalization. CURRENT MEDICATIONS: List in [facility] reviewed. HOME MEDICATIONS: Also list in [facility] reviewed, also as discussed above. FAMILY HISTORY: Hypertension. ALLERGIES: No known drug allergies. PHYSICAL EXAMINATION: GENERAL: Alert, awake and oriented, does not appear to be in any distress at this time. He is coughing up dylan blood, which is at his bedside. VITAL SIGNS: Pulse of 96 and a blood pressure of 114/68. He is saturating 100%. He is on 2 liters nasal cannula. His respiratory rate is 16. He is afebrile with a temperature of 36.9. HEENT: Head is normocephalic and atraumatic. Pupils are equal and reactive. There is no throat erythema. There is no thrush in his throat. NECK: Does not show raised JVP, asymmetry, mass or lymph nodes. CHEST: Symmetrical expansion on inspection and palpation. On auscultation, chest is essentially clear. HEART: Regular. There is no murmur. ABDOMEN: Soft and nontender. EXTREMITIES: Lower extremities show no edema, no calf tenderness. SKIN: Dry and intact. NEUROLOGICAL: Moves all extremities bilaterally equally and spontaneously with no focal deficit identified. LABORATORY DATA: The patient's lab work, which does show significant anemia in [facility] reviewed. The platelet count is in fact on the higher side despite the fact that the patient has been on linezolid. The WBC count is normal. Chemistries which show mild elevation in creatinine, also in [facility] [place] [address] CONSULTATION Name: EVON VINES Room: [address] IN [facility]#: [id number] Admission: 03/24/20 Attend Phys: Allyn Yuan MD Discharge: Date of : 74 Report #: [id number] Coagulation studies in [facility] reviewed. CTA chest, which shows persistent lung masses with no pulmonary emboli in [facility] reviewed. We performed venous Dopplers, which does show a persistent DVT. The COVID-19 antigen is negative. ASSESSMENT AND PLAN: 1. Hemoptysis. I will go ahead and treat him with Solu-Medrol. If he continues to have hemoptysis we will give him racemic epinephrine as well. 2. Pulmonary infiltrates/infective endocarditis. Note that the vegetation was seen on the transthoracic echo, but not these transesophageal echo. At this time, we will go ahead and start him on vancomycin. I considered both Zosyn as well as Levaquin considering that he was on Augmentin as an outpatient. I went ahead and ordered, Levaquin instead of prazosin. Potentially can add Zosyn or meropenem if he fails to improve. 3. One of this sputum for AFB smear obtained during the bronchoscopy is negative, the second one is still showing up as pending. I therefore did call and speak with Dr. Tao Coronado, who will clarify this and will get back to me. My suspicion of TB; however, is not high. The patient's CHARLOTTE is noted to be elevated, however ANCA is negative. I will go ahead and obtain an antiglomerular basement membrane antibody as well. 4. Lung masses. The etiology is still not fully defined at this is rather unusual for this to be septic emboli alone. He has had a bronchoscopy as well as CT-guided biopsy as above. I feel that the patient will benefit from transfer to a facility where a cardiothoracic surgeon as well as Infectious Disease specialist are available. 5. Deep vein thrombosis. This is persisting on the new venous Dopplers. I recommend proceeding to placing an IVC filter as the patient is not able to tolerate anticoagulation at this time. This will need further followup and the filter will need to be removed later. 6. Infective endocarditis. Note that the vegetation was seen on the initial transthoracic echo, but not on the transesophageal echo, may consider repeating an echo as well. 7. History of marijuana use as well as positive for cocaine during last admission. I recommend repeating a urine for toxicology screen as well as Thanks for this consultation. By: 1605 [id number] Panda MD /nt
[~2020-03-24 19:45] MED LIST changes: -AMOXICILLIN 50500 M1 PO; -AUGMENTIN 875-1 EACH PO; -LINEZOLID600 MG PO; -LOPRESSOR100 M1 PO; -MIRALAX17 GM PO; -NORCO 5-325 TA1 EAC2 PO; -PREDNISONE 10 M10 MG PO
[2020-03-24 19:50] VITALS: BP 137/67
[2020-03-24 20:27] LABS: BE 2.4 mmol/L (-2 to +3); PCO2 41.2 mmHg (35.0-45.0); PO2 61.2 mmHg (75.0-100.0); pH 7.432 (7.340-7.450)
[2020-03-24 20:48] LABS: ABSOLUTE EOSINOPHILS 0.1 thou/uL (0.0-0.7); ABSOLUTE LYMPHOCYTES 1.7 thou/uL (0.8-5.3); ABSOLUTE MONOCYTES 0.7 thou/uL (0.0-1.2); ABSOLUTE NEUTROPHILS 5.2 thou/uL (1.6-8.1); BASOPHILS 0.5 %; EOSINOPHILS 0.7 %; LYMPHOCYTES 22.7 %; MCH 24.9 pg (26.0-34.0); MCHC 31.2 g/dL (28.0-37.0); MONOCYTES 8.8 %; MPV 7.3 fl. (7.2-11.1); NUCLEATED RBCS 0 /100WBC; PLATELET COUNT* 422 thou/uL (150-400); POLYS 67.3 %; RBC 2.32 mil/uL (4.50-6.00); RDW-CV 20.2 % (10.5-14.5); WBC 7.7 thou/uL (4.0-11.0)
[2020-03-24 20:54] LABS: HEMATOCRIT 18.5 % (42.0-52.0); HEMOGLOBIN 5.8 gm/dL (14.0-18.0)
[2020-03-24 20:57] LABS: APTT 27.7 Seconds (25.0-31.3); CALCIUM 8.1 mg/dL (8.5-10.1); CREATININE 1.3 mg/dL (0.6-1.3); INR 1.1; POTASSIUM 3.8 mmol/L (3.5-5.1); PROTIME 11.4 Seconds (9.20-11.50)
[2020-03-24 21:08] LABS: ALBUMIN 2.5 g/dL (3.4-5.0); MAGNESIUM 2.4 mg/dL (1.8-2.4); TOTAL BILIRUBIN 0.9 mg/dL (<0.1-1.0); TOTAL PROTEIN 7.7 g/dL (6.4-8.2)
[2020-03-24 21:50] LABS: ANISOCYTOSIS 2+; POIKILOCYTOSIS 2+; POLYCHROMASIA 1+
[2020-03-24 22:53] VITALS: BP 101/56
[2020-03-24 23:15] VITALS: BP 119/66
[2020-03-25] VITALS (7 sets, daily range): BP systolic 99–136; BP diastolic 61–87
[2020-03-25 05:47] LABS: HEMATOCRIT 19.6 % (42.0-52.0); HEMOGLOBIN 6.3 gm/dL (14.0-18.0)
[2020-03-25] MEDS ORDERED: LOPRESSOR100 M1 PO (07:45)
[2020-03-25] MEDS ORDERED: AUGMENTIN 875-1 EACH PO (07:46)
[2020-03-25] MEDS ORDERED: LINEZOLID600 MG PO (07:47)
--- NOTE | 2020-03-25 09:52 | EKG ---
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 : 1970 Requested By: Consuelo Mathew Order Number: [id number] MD: Imtiaz Franco Measurements Intervals Blair Rate: 111 P: 49 MO: 143 QRS: 47 QRSD: 83 T: 22 QT: 312 QTc: 424 Interpretive Statements Sinus tachycardia Probable left atrial enlargement Compared to ECG 02/18/2020 09:58:52 Sinus rhythm no longer present ST (T wave) deviation no longer present Electronically Signed On 03-25-2020 9:52:28 CDT by Imtiaz Franco [email or web address] <ELECTRONICALLY SIGNED> By: Imtiaz Franco MD, FACC 03/25/20 0952 10 10 Imtiaz Franco MD, [facility] /EPI
[2020-03-25 18:05] LABS: URINE BILIRUBIN NEGATIVE (Negative); URINE BLOOD TRACE (Negative); URINE CLARITY CLEAR; URINE COLOR YELLOW; URINE GLUCOSE-RANDOM NEGATIVE (Negative); URINE KETONES NEGATIVE (Negative); URINE LEUKOCYTES-REFLEX NEGATIVE (Negative); URINE NITRITE-REFLEX NEGATIVE (Negative); URINE PROTEIN NEGATIVE (Negative); URINE UROBILINOGEN 0.2 E.U./dl (0.2-1.0)
[2020-03-25 18:14] LABS: AMP/METHAMP Negative (Negative); BARBITURATES Negative (Negative); BENZODIAZEPINES Negative (Negative); COCAINE Negative (Negative); METHADONE Negative (Negative); OPIATES Negative (Negative); PCP Negative (Negative); THC Negative (Negative)
[2020-03-25 19:55] LABS: ABSOLUTE LYMPHOCYTES 0.5 thou/uL (0.8-5.3); ABSOLUTE MONOCYTES 0.1 thou/uL (0.0-1.2); ABSOLUTE NEUTROPHILS 8.6 thou/uL (1.6-8.1); BASOPHILS 0.3 %; HEMATOCRIT 29.9 % (42.0-52.0); LYMPHOCYTES 5.2 %; MCH 26.4 pg (26.0-34.0); MCHC 32.6 g/dL (28.0-37.0); MONOCYTES 0.7 %; MPV 7.2 fl. (7.2-11.1); NUCLEATED RBCS 0 /100WBC; PLATELET COUNT* 398 thou/uL (150-400); POLYS 93.8 %; WBC 9.2 thou/uL (4.0-11.0)
[2020-03-25 20:00] LABS: HEMOGLOBIN 9.7 gm/dL (14.0-18.0)
[2020-03-25 20:07] LABS: ALBUMIN 2.3 g/dL (3.4-5.0); CALCIUM 8.5 mg/dL (8.5-10.1); CREATININE 1.1 mg/dL (0.6-1.3); MAGNESIUM 2.3 mg/dL (1.8-2.4); POTASSIUM 4.1 mmol/L (3.5-5.1); TOTAL BILIRUBIN 1.4 mg/dL (<0.1-1.0); TOTAL PROTEIN 7.5 g/dL (6.4-8.2)
[2020-03-25 20:31] LABS: ANISOCYTOSIS 1+; LARGE PLATELETS OCCASIONAL; MICROCYTES Occasional; PLATELET ESTIMATE ADEQUATE
[2020-03-26] VITALS (9 sets, daily range): BP systolic 133–146; BP diastolic 81–87
[2020-03-26 15:29] LABS: ABSOLUTE BASOPHILS 0.1 thou/uL (0.0-0.2); ABSOLUTE LYMPHOCYTES 0.8 thou/uL (0.8-5.3); ABSOLUTE MONOCYTES 1.2 thou/uL (0.0-1.2); ABSOLUTE NEUTROPHILS 14.6 thou/uL (1.6-8.1); BASOPHILS 0.4 %; HEMATOCRIT 27.3 % (42.0-52.0); LYMPHOCYTES 5.1 %; MCH 26.7 pg (26.0-34.0); MCHC 32.8 g/dL (28.0-37.0); MCV 81.2 fL (80.0-100.0); MONOCYTES 7.1 %; NUCLEATED RBCS 0 /100WBC; PLATELET COUNT* 419 thou/uL (150-400); POLYS 87.4 %; RBC 3.36 mil/uL (4.50-6.00); RDW-CV 17.9 % (10.5-14.5); WBC 16.7 thou/uL (4.0-11.0)
[2020-03-26 15:48] LABS: ALBUMIN 2.3 g/dL (3.4-5.0); CALCIUM 8.5 mg/dL (8.5-10.1); CREATININE 1.1 mg/dL (0.6-1.3); MAGNESIUM 2.4 mg/dL (1.8-2.4); PHOSPHORUS* 2.9 mg/dL (2.5-4.9); POTASSIUM 4.4 mmol/L (3.5-5.1); TOTAL BILIRUBIN 0.8 mg/dL (<0.1-1.0); TOTAL PROTEIN 7.1 g/dL (6.4-8.2)
--- NOTE | 2020-03-26 16:21 | 2DMMODE ---
[place] [address] 2 D/M-MODE ECHOCARDIOGRAM Name: EVON VINES Room: [address] IN .Latoya.#: [id number] Admission: 03/24/20 Attend Phys: Allyn Yuan, Discharge: Date of : 74 Date of Service: 03/26/20 1621 Report #: [id number] THIS REPORT FOR: cc: FAM - No family physician/PCP FAM - No family physician/PCP Imtiaz Franco MD [facility] ~ APPROVED REPORT Study performed: 03/26/2020 15:29:34 EXAM: Comprehensive 2D, Doppler, and color-flow Echocardiogram Patient Location: Bedside BSA: 1.90 HR: 103 bpm BP: 138/86 mmHg Other Information Study Quality: Excellent Indications F/U Endocarditis 2D Dimensions IVSd: 9.72 (7-11mm) LVOT Diam: 19.63 (18-24mm) LVDd: 45.74 mm PWd: 9.52 (7-11mm) Ascending Ao: 29.47 (22-36mm) LVDs: 30.33 (25-40mm) Aortic Root: 28.86 mm Volumes Left Atrial Volume (Systole) LA ESV Index: 19.30 mL/m2 Aortic Valve AoV Peak Vin.: 1.83 m/s AO Peak Gr.: 13.35 mmHg LVOT Max P.34 mmHg AO Mean Gr.: 7.29 mmHg LVOT Mean P.72 mmHg LVOT Max V: 1.44 m/s AO V2 VTI: 26.68 cm LVOT Mean V: 0.88 m/s RAMONA (VTI): 2.87 cm2 LVOT V1 VTI: 25.31 cm Mitral Valve E/A Ratio: 0.83 [place] [address] 2 D/M-MODE ECHOCARDIOGRAM Name: EVON VINES Room: [address] IN [facility]#: [id number] Admission: 03/24/20 Attend Phys: Allyn Yuan, Discharge: Date of : 74 Date of Service: 03/26/20 1621 Report #: [id number] MV Decel. Time: 99.45 ms MV E Max Vin.: 0.81 m/s MV PHT: 28.84 ms MVA (PHT): 7.63 cm2 TDI E/Lateral E': 11.57 E/Medial E': 6.23 Medial E' Vin.: 0.13 m/s Lateral E' Vin.: 0.07 m/s Pulmonary Valve PV Peak Vin.: 1.09 m/s PV Peak Gr.: 4.79 mmHg Tricuspid Valve RAP Estimate: 5.00 mmHg TR Peak Gr.: 34.80 mmHg RVSP: 39.80 mmHg PA Pressure: 39.80 mmHg Left Ventricle The left ventricle is normal size. There is normal LV segmental wall motion. There is normal left ventricular wall thickness. Left ventricular systolic function is hyperdynamic. LVEF is >70%. Right Ventricle The right ventricle is normal size. The right ventricular systolic function is normal. Atria The left atrium size is normal. The right atrium size is normal. Aortic Valve The aortic valve is normal in structure. No aortic regurgitation is present. There is no aortic valvular stenosis. Mitral Valve The mitral valve is normal in structure. Trace mitral regurgitation. Small mitral valve vegetation is present. No evidence of mitral valve stenosis. Tricuspid Valve The tricuspid valve is normal in structure. Trace tricuspid regurgitation[place] [address] 2 D/M-MODE ECHOCARDIOGRAM Name: SUSAN VINESY Room: [address]#: [id number] Admission: 03/24/20 Attend Phys: Allyn Yuan, Discharge: Date of : 74 Date of Service: 03/26/20 1621 Report #: [id number] The pulmonary valve is normal in structure. There is no pulmonic valvular regurgitation. Great Vessels The aortic root is normal in size. IVC is normal in size and collapses >50% with inspiration. Pericardium There is no pericardial effusion. <Conclusion> Left ventricular systolic function is hyperdynamic. LVEF is >70%. <ELECTRONICALLY SIGNED> By: Imtiaz Franco MD, FACC 03/26/201620 20 20 Imtiaz Franco MD, FACC /INF
[2020-03-27] VITALS (8 sets, daily range): BP systolic 132–157; BP diastolic 79–94
[2020-03-27] MEDS ORDERED: PREDNISONE 10 M10 MG PO (13:39)
[2020-03-27 21:06] LABS: ANA INTERPRETATION Positive (())
== END 2020-03-27 17:20 | disposition home or self-care (01) | DRG 177 ==
LOC: M.ERS 19:45 → M.2W 22:30 → M.TBA-ER 22:30 → M.2W 23:19
PROVIDERS: Internal Medicine; Internal Medicine Critical Care Medicine; Personal Emergency Response Attendant; ADMIT Internal Medicine; ATTEND Internal Medicine
PROC: 30233N1 Transfusion of Nonautologous Red Blood Cells into Peripheral Vein, Percutaneous Approach (ICD-10-PCS; principal; 2020-03-25)
DX: J15.6 Pneumonia due to other Gram-negative bacteria (principal); I21.A1 Myocardial infarction type 2; J96.00 Acute respiratory failure, unspecified whether with hypoxia or hypercapnia; I38 Endocarditis, valve unspecified; R04.2 Hemoptysis; D62 Acute posthemorrhagic anemia; F12.90 Cannabis use, unspecified, uncomplicated; Z20.828 Contact with and (suspected) exposure to other viral communicable diseases; R91.8 Other nonspecific abnormal finding of lung field; Z82.49 Family history of ischemic heart disease and other diseases of the circulatory system; Z86.718 Personal history of other venous thrombosis and embolism; Z86.73 Personal history of transient ischemic attack (TIA), and cerebral infarction without residual deficits; Z83.3 Family history of diabetes mellitus; Z79.899 Other long term (current) drug therapy